=== PATIENT | female | born 1955 | race Caucasian/White ===

== ENCOUNTER 2024-06-24 13:00 | Emergency (ER) | payer MEDICARE, SELFPAY ==
--- NOTE | 2024-06-24 13:05 | ED.FEMALEGU ---
HPI - Female Genitourinary General Chief complaint: Urogenital-Female Stated complaint: uti symptoms Time Seen by Provider: 06/24/24 13:05 Source: patient Mode of arrival: ambulatory Limitations: no limitations History of Present Illness HPI Narrative: Sarita is a 69-year-old female patient presenting to the clinic today with complaints of possible urinary tract infection. She reports she had an episode of confusion that started on night into Sunday morning. Recently traveled from [place] to [place]. States that she got in on . Reports symptoms waking up in the middle of the night and not knowing where she was. Reports she was delusional. She moved furniture around, folded towels, and was rearranging items in the house. When her father called out to her she did not respond and went back to bed. Did an at-home azo UTI test and it was positive. Had taking a few days of the azo medication and now is feeling better. She denies any urinary symptoms, headache, slurred speech, facial droop, drooling, difficulty swallowing, difficulty breathing, chest pain, visual changes, weakness, or difficulty ambulating. Related Data Home Medications Medication Instructions Recorded Confirmed escitalopram oxalate 10 mg tablet 10 mg PO DAILY 06/24/24 06/24/24 trazodone 50 mg tablet 50 mg PO HS 06/24/24 06/24/24 Allergies Allergy/AdvReac Type Severity Reaction Status Date / Time No Known Allergies Allergy Verified 06/24/24 13:16 Review of Systems Review of Systems: Pertinent positives per HPI. Patient denies any fever, chills, rash, headache, visual changes, dizziness, cough, runny nose, sore throat, shortness of breath, chest pain, palpitations, nausea, vomiting, diarrhea, constipation, abdominal pain, or any urinary issues. PMFSH Comments At the time of my signature, I reviewed and agree with the nursing past medical, surgical, social, and family history. There is no relevant family history pertinent to the patient complaint. Exam Narrative: General: Well-developed, well nourished, in no apparent distress Head: Normocephalic, atraumatic Eyes: Pupils equally round and reactive to light bilaterally, EOM intact, sclera and conjunctive clear, no discharge, lids normal Ears: TMs intact and clear, ear canals clear, no drainage, grossly hearing normal. Nose: Nares patent, no discharge, no inflammation, no sinus tenderness. Mouth: Oropharynx without lesions or masses, good dentition, MMM. Tongue midline, even rise and fall of uvula Neck: Supple, trachea midline, no enlargement of anterior or posterior cervical nodes, no thyroid masses or goiter palpable. Cardio: Regular rate and rhythm, s1 and s2 normal, no murmur appreciated. Resp: Clear to auscultation bilaterally anteriorly and posteriorly, no rhonchi, rales, wheezing or rubs Musculoskeletal: No deformity, non-tender to palpation, grossly normal range of motion, muscle strength strong and equal, peripheral pulse strong, no edema, no cyanosis, normal gait and station Neuro: Alert and oriented x4 with normal speech, no focal deficits, cranial nerves I through XII intact, muscle strength 5 out of 5, sensation intact bilaterally, negative Romberg test Course Course Emergency Course: Portions of this record may have been created with voice recognition software. Level of Care: Express Care Visit Vital Signs Vital signs: Vital signs reviewed Transfer Transfered to: [facility] Transportation: Other (private car) Transfer rationale: Acute confusion r/o TIA or other etilology Accepting physician: Dr. Elias Transfer comments: private car MDM - Female Genitourinary MDM Narrative Medical decision making narrative: At the time of visit patient is resting comfortably on the exam table. Patient appears to be nontoxic. Labs: UA dip negative for any sign of infection, blood, or protein Plan: Patient had an acute confusional state. Discussed patient's
[2024-06-24 13:17] VITALS: BP 111/64; PULSE 86; RESP 16; TEMP 36.4; O2SAT 100
[2024-06-24 13:31] LABS: EDUAAPPEAR Clear; EDUABILI Negative; EDUABLOOD Negative; EDUACOLOR1 Yellow; EDUAGLUCOSE Negative; EDUAKETONE Negative; EDUALEUKO Negative; EDUANITRATE Negative; EDUAPH 5.5; EDUAPROTEIN Negative; EDUAUROBILI 0.2
== END 2024-06-24 13:46 | disposition short-term general hospital (02) ==
PROVIDERS: Emergency Provider Nurse Practitioner Family
DX: R41.0 Disorientation, unspecified (principal); Z86.16 Personal history of COVID-19; F41.9 Anxiety disorder, unspecified; F32.A Depression, unspecified
CPT/HCPCS: 81003; 99202; G0463

== ENCOUNTER 2024-06-24 14:06 | Emergency (ER) | payer MEDICARE, SELFPAY ==
--- NOTE | ~2024-06-24 | CT_ITS ---
EXAMINATION: CT brain wo con DATE: 06/24/2024 17:30 INDICATION: Headache and confusion TECHNIQUE: Computed tomography (CT) of the head was performed without intravenous contrast. Sagittal and coronal reconstructions were performed. The mA was adjusted according to patient size. Iterative reconstruction technique was employed. The dose-length product was 605.33 mGy-cm. COMPARISON: None FINDINGS: No acute intracranial hemorrhage, acute infarction or abnormal extra axial fluid collection. There is minimal scattered white matter hypoattenuation consistent with chronic small vessel ischemic disease . Ventricles are normal and symmetric. No mass/mass effect. The orbits, paranasal sinuses and mastoi d air cells are normal. IMPRESSION: 1. Normal aging brain. No acute intracranial process. Reviewed, dictated and finalized at location A.
--- NOTE | ~2024-06-24 | XR_ITS ---
EXAMINATION: XR chest 2V DATE: 06/24/2024 17:32 INDICATION: Altered mental status TECHNIQUE: PA and lateral views of the chest were obtained. COMPARISON: None FINDINGS: The lungs are clear with no focal airspace opacities, pulmonary edema, pleural effusion or pneumothor ax. The cardiomediastinal silhouette is normal. Mild thoracic spondylosis. IMPRESSION: 1. No acute cardiopulmonary disease. Reviewed, dictated and finalized at location A.
[2024-06-24 14:34] VITALS: BP 131/64; PULSE 89; RESP 18; TEMP 36.7; O2SAT 100
--- NOTE | 2024-06-24 17:06 | ED.AMS ---
HPI - Altered Mental Status General Chief Complaint: Altered Mental Status <ELVIS Bullard Last Filed: 06/24/24 17:17> Stated Complaint: ams <ELVIS Bullard Last Filed: 06/24/24 17:17> Time Seen by Provider: 06/24/24 17:06 <ELVIS Bullard Last Filed: 06/24/24 17:17> Focused HPI: Patient is a 69 y/o female who presents to the ED with c/o acute confusion. Patient reports she travelled here from [place] to visit her sister on . night into Sunday, patient woke up in the middle of the night and was very confused and disoriented. She states she had no idea where she was and was having visual hallucinations - states she saw figures and ghost like objects in the house. She states she did several things the middle of the night that she does not remember, rearranged furniture, put towels on the floor, uncovered her sister's pet bird, rearranged her purse. She further reports having 2 weeks of mild headaches every day, and for short-term memory over the past few weeks. She states she will forget something that occurred in the morning by the afternoon. Her sister also reports she has been repeating words and phrases frequently. Denies dizziness, lightheadedness, vision changes, focal weakness or numbness. GENERAL: Well-appearing, well-nourished, and in no acute distress. HEAD: Normocephalic, atraumatic. CHEST: Clear to auscultation. ?No respiratory distress. HEART: Regular rate and rhythm.? NEURO: ?Alert and oriented x3. No appreciable focal deficits. Strength equal in upper and lower extremities bilaterally. Equal drafter (cad) electrical strength. No pronator drift. Patient screened in triage and initial orders placed.? ?Additional care and disposition to be based upon?diagnostic testing and treatment. <ELVIS Bullard Last Filed: 06/24/24 17:17> Source: patient and family <ELVIS Bullard Last Filed: 06/24/24 17:17> Mode of arrival: ambulatory <ELVIS Bullard Filed: 06/24/24 17:17> Limitations: no limitations <ELVIS Bullard Last Filed: 06/24/24 17:17> History of Present Illness HPI narrative: Agree with the above triage note. Patient's sister is at bedside to assist with history and states that the patient has not had any episodes of confusion or altered mental status in 4 days. She has a PCP at home back in and plans to go back to [place] on July 03. She denies drug use but does endorse Drinking a glass of wine occasionally. patient also states she remembers falling on the stairs during her episode of acute confusion. She denies hitting her head or losing consciousness. She is reporting bruise to her left lower back /buttock. <ELVIS Rodriguez Last Filed: 06/24/24 18:34> Related Data Home Medications: Home Medications Medication Instructions Recorded Confirmed escitalopram oxalate 10 mg tablet 10 mg PO DAILY 06/24/24 06/24/24 trazodone 50 mg tablet 50 mg PO HS 06/24/24 06/24/24 <ELVIS Bullard Last Filed: 06/24/24 17:17> Allergies/Adverse Reactions: Allergies Allergy/AdvReac Type Severity Reaction Status Date / Time No Known Allergies Allergy Verified 06/24/24 14:36 <ELVIS Bullard Last Filed: 06/24/24 17:17> Review of Systems Review of Systems: All systems reviewed & are unremarkable except as noted in HPI and below <ELVIS Rodriguez Last Filed: 06/24/24 18:34> Exam Narrative: GENERAL: Well-appearing, well-nourished, and in no acute distress. Very well appearing, pleasant and conversational. HEAD: Normocephalic, atraumatic. EYES: PERRLA and EOMI. ENT: Nares clear, no rhinorrhea or epistaxis. Mucous membranes moist. NECK: Supple. No midline cervical spinous tenderness, step-offs or deformities BACK: no midline thoracolumbar spinous tenderness, step-offs or deformities. Area of ecchymosis to the
--- NOTE | 2024-06-24 17:08 | ECG_ITS ---
Test Date: 2024-06-24 18:02:28 Measurements Intervals [place] Rate: 63 P: 32 DE: 144 QRS: 50 QRSD: 69 T: 41 QT: 394 QTc: 405 Interpretive Statements SINUS RHYTHM BASELINE ARTIFACT- I, II, AVR, V1 NORMAL ECG No previous ECG available for comparison Electronically Signed On 06-24-2024 20:00:44 CDT by Zak De Luna D.O.
[2024-06-24 17:21] LABS: Basophils Percent Auto 0.6 % (0.2-1.2); Eosinophils Absolute Auto 0.1 K/mm3 (0-0.3); Eosinophils Percent Auto 1.3 % (0-4.4); Hematocrit 43.2 % (37.0-47.0); Hemoglobin 14.4 g/dL (12.0-15.0); Immature Granulocyte Absolute 0.02 K/mm3 (0.00-0.031); Immature Granulocyte Percent A 0.3 % (0-0.5); Lymphocytes Absolute Auto 1.58 K/mm3 (0.9-3.2); Lymphocytes Percent Auto 22.9 % (18.3-44.2); Mean Corpuscular HGB Conc 33.3 g/dl (32-36); Mean Corpuscular Hemoglobin 30.5 pg (26-34); Mean Corpuscular Volume 91.5 fl (80-100); Mean Platelet Volume 10.8 fl (7.4-10.4); Monocytes Absolute Auto 0.7 K/mm3 (0.1-0.6); Monocytes Percent Auto 10.6 % (2.6-8.5); Neutrophils Absolute Auto 4.4 K/mm3 (1.3-6.7); Neutrophils Percent Auto 64.3 % (45.5-73.1); Platelet Count Result 219 k/mm3 (150-375); Red Blood Count 4.72 M/mm3 (4.2-5.4); Red Cell Distribution Width 13.1 % (11.5-14.5); White Blood Count 6.9 K/mm3 (4.5-10.0)
[2024-06-24 17:31] LABS: Alanine Aminotransferase 17 U/L (6-35); Albumin Level 4.4 g/dL (3.5-5.1); Alkaline Phosphatase 73 U/L (38-126); Anion Gap 9 mmol/L (4-12); Aspartate Amino Transferase 29 U/L (14-36); Bilirubin,Total 0.5 mg/dL (0.2-1.3); Blood Urea Nitrogen 17 mg/dL (7-17); Calcium 9.5 mg/dL (8.4-10.2); Carbon Dioxide 30 mmol/L (22-30); Chloride 98 mmol/L (98-107); Estimated CRCL calculation 44 ml/min; Estimated Glomerular Filt Rate > 60; Glucose 75 mg/dL (65-110); Sodium 137 mmol/L (137-145)
[2024-06-24 17:33] LABS: INR 0.9; Partial Thromboplastin Time 25.4 Seconds (22.3-36.8); Prothrombin Time 12.9 Seconds (11.1-14.7)
[2024-06-24 18:04] LABS: Appearance Urine Clear (Clear); Bilirubin Urine Negative (Negative); Blood Urine Negative (Negative); Color Urine Yellow (Yellow); Glucose Urine UA Negative (Negative); Ketones Urine Negative (Negative); Leukocyte Esterase Ur Negative LEU/UL (Negative); Nitrate Urine Negative (Negative); Protein Urine Negative (Negative); Specific Grav Ur 1.012 (1.001-1.035); Urobilinogen Urine 0.2 mg/dL (<2.0)
[2024-06-24 18:09] LABS: Add Urine Microscopic? NO
[2024-06-24 18:11] VITALS: BP 160/76; PULSE 75; RESP 18; TEMP 36.6; O2SAT 97
[2024-06-24 18:18] LABS: Amphetamine Screen Urine Negative (Negative); Barbiturate Screen Urine Negative (Negative); Benzodiazepines Screen Urine Negative (Negative); Cannabinoid Screen Urine Negative (Negative); Cocaine Screen Urine Negative (Negative); Methadone Screen Urine Negative (Negative); Opiate Screen Urine Negative (Negative); Phencyclidine Screen Urine Negative (Negative)
[2024-06-24 18:45] VITALS: BP 129/70; PULSE 78; RESP 18; TEMP 36.9; O2SAT 98
== END 2024-06-24 18:47 | disposition home or self-care (01) ==
PROVIDERS: Physician Assistant; Emergency Provider Physician Assistant
DX: R41.0 Disorientation, unspecified (principal); S30.0XXA Contusion of lower back and pelvis, initial encounter; Z79.899 Other long term (current) drug therapy; X58.XXXA Exposure to other specified factors, initial encounter
CPT/HCPCS: 36415; 70450; 71046; 80053; 80307; 81003; 85025; 85610; 85730; 93005; 99284